=== PATIENT | female | born 2000 | race Caucasian/White ===

== ENCOUNTER 2022-08-10 20:35 | Outpatient (CLI) | payer OTHER ==
[~2022-08-10] VITALS: Ht 165.1 cm; Wt 84.0 kg
[2022-08-10 20:38] VITALS: BP 143/84
[2022-08-10 20:49] VITALS: BP 129/77
[2022-08-10] MEDS ORDERED: PRENTAB9 PO (21:34)
[2022-08-10] MEDS ORDERED: HOME MED LIST COMPLETE! XX SCH (21:35)
[2022-08-11] MEDS ORDERED: TUMS500C PO (16:55)
== END 2022-08-10 21:16 | disposition home or self-care (01) ==
LOC: M LDO 20:35 → M LDI 08-11 15:35 → UNDOADMIN 08-11 15:35 → UNDODISIN 08-11 15:45
PROVIDERS: ADMIT Obstetrics & Gynecology; ATTEND Obstetrics & Gynecology
DX: O47.1 False labor at or after 37 completed weeks of gestation (principal); O48.0 Post-term pregnancy; Z3A.40 40 weeks gestation of pregnancy
CPT/HCPCS: 59025; 76815; G0463

== ENCOUNTER 2022-08-11 15:51 | Inpatient (IN) | payer OTHER ==
[~2022-08-11] VITALS: Ht 165.1 cm; Wt 83.3 kg
[~2022-08-11 15:51] MED LIST: PRENTAB9 PO
[2022-08-11] MEDS ORDERED: METHYLERGONOVINE MALEATE 0.2MG/ML 1ML VIAL IM PRN (16:20)
[2022-08-11] MEDS ORDERED: OXYTOCIN DRIP 30 UNITS in IV 1 EA IV PRN ×6 (16:20)
[2022-08-11] MEDS ORDERED: LIDOCAINE 1% MDV 20ML VIAL INFIL PRN (16:20)
[2022-08-11] MEDS ORDERED: CARBOPROST TROMETHAMINE 250 MCG/ML AMP IM PRN (16:20)
[2022-08-11] MEDS ORDERED: TRANEXAMIC ACID INJection 1,000 MG in NS 100 ML IV PRN (16:20)
[2022-08-11 16:22] VITALS: BP 138/79
[2022-08-11] MEDS ORDERED: CALCIUM CARBONATE 500 MG CHEW U/D PO PRN (16:25)
[2022-08-11] MEDS ORDERED: TUMS500C PO (16:55)
[2022-08-11] MEDS ORDERED: FAMOTIDINE 20 MG TAB PO ONE (16:55)
[2022-08-11] MEDS ORDERED: HOME MED LIST COMPLETE! XX SCH (17:00)
[2022-08-11] MEDS: ONDANSETRON 4MG 2ML VIAL IV PRN (17:09)
[2022-08-11 17:18] LABS: HEMATOCRIT 38.5 % (36.0-47.0); HEMOGLOBIN 12.9 g/dl (12.0-15.5); MEAN CORPUSCULAR HEMOGLOBIN 28.7 pg (27.0-33.0); MEAN CORPUSCULAR HGB CONC 33.5 g/dl (32.0-36.5); MEAN CORPUSCULAR VOLUME 85.6 fl (80.0-96.0); PLATELET COUNT, AUTOMATED 284 10^3/uL (150-450); WHITE BLOOD COUNT 8.4 10^3/uL (4.0-10.0)
[2022-08-11 17:36] VITALS: BP 143/89
[2022-08-11] MEDS: miSOPROStol 50MCG 1/2 TABLET PO SCH ×2 (17:38→21:35)
[2022-08-11 19:39] VITALS: BP 173/90
[2022-08-11 19:40] VITALS: BP 144/74
[2022-08-11 21:37] VITALS: BP 140/78
[2022-08-12] VITALS (27 sets, daily range): BP systolic 109–175; BP diastolic 58–116
[2022-08-12] MEDS: miSOPROStol 50MCG 1/2 TABLET PO SCH ×5 (01:40→22:41)
[2022-08-12] MEDS ORDERED: MORPHINE 10 MG/ML 1ML VIAL IV ONE (05:35)
[2022-08-12] MEDS ORDERED: OXYTOCIN DRIP 30 UNITS in IV 1 EA IV SCH (06:20)
[2022-08-12] MEDS ORDERED: diphenhydrAMINE 50MG/ML VIAL IV PRN (09:15)
[2022-08-12] MEDS ORDERED: EPIDURAL/PCA KEYS XX PRN (09:15)
[2022-08-12] MEDS ORDERED: LR 500 ML IV PRN (09:15)
[2022-08-12] MEDS ORDERED: ePHEDrine SULFATE 25 MG/5 ML(5MG/ML) SYRINGE IVP PRN (09:15)
[2022-08-12] MEDS ORDERED: ONDANSETRON 4MG 2ML VIAL IV PRN ×2 (09:15→20:15)
[2022-08-12] MEDS ORDERED: NALOXONE INJ 0.4MG/1ML VIAL IV PRN (09:15)
[2022-08-12] MEDS: FENTANYL/ROPIVACAINE/NACL BAG 100 ML EPIDURAL SCH ×2 (09:54→17:15)
[2022-08-12] MEDS ORDERED: LACTATED RINGER'S 1000 ML IV STA (19:29)
[2022-08-12] MEDS ORDERED: AZITHROMYCIN INJ 500 MG, VIAL MATE ADAPTER 1 EACH in NS 250 ML IV ONE ×6 (19:30)
[2022-08-12] MEDS ORDERED: BICITRA 30ML SOLN UDC PO ONE ×2 (19:30)
[2022-08-12] MEDS ORDERED: ceFAZolin SOD 2 GM in IV 1 EA IV ONE ×4 (19:30)
[2022-08-12 20:11] LABS: CORD GAS ABE A -2.2; CORD GAS HCO3 A 24.2 MEQ/L; CORD GAS O2 SAT A 29.7 %; CORD GAS PCO2 A 47.3 mmHg; CORD GAS PH A 7.327 UNITS; CORD GAS PO2 A 15.7 mmHg; CORD GAS SBC A 20.8 MEQ/L; CORD GAS TCO2 A 25.7 MEQ/L
[2022-08-12 20:12] LABS: CORD GAS ABE V -2.2; CORD GAS O2 SAT V 57.2 %; CORD GAS PCO2 V 46.2 mmHg; CORD GAS PH V 7.334 UNITS; CORD GAS SBC V 21.7 MEQ/L; CORD GAS TCO2 V 25.4 MEQ/L
[2022-08-12] MEDS ORDERED: fentaNYL 100 MCG/2 ML INJECTION IV PRN (20:15)
[2022-08-12] MEDS ORDERED: LR 1,000 ML IV SCH (20:15)
[2022-08-12] MEDS ORDERED: MORPHINE 2 MG/ML 1ML VIAL IV PRN (20:15)
[2022-08-12] MEDS ORDERED: oxyCODONE 5MG TAB PO PRN (20:15)
[2022-08-12] MEDS ORDERED: ANUSOL HC CREAM 30GM TOP PRN (20:50)
[2022-08-12] MEDS ORDERED: MOM 30ML SUSPENSION UDC PO PRN (20:50)
[2022-08-12] MEDS ORDERED: MORPHINE PRES-FREE INJ 10 MG/10 ML VIAL As Ordered ONE (21:01)
[2022-08-12] MEDS ORDERED: MIDAZOLAM INJ 2MG/2ML VIAL As Ordered ONE (21:01)
[2022-08-12] MEDS ORDERED: KETOROLAC 60MG 2ML VIAL As Ordered ONE (21:01)
[2022-08-12] MEDS ORDERED: PHENYLephrine 500MCG 5ML (100MCG/ML) SYRINGE As Ordered ONE (21:01)
[2022-08-12] MEDS ORDERED: METOCLOPRAMIDE INJ 10MG/2ML VIAL As Ordered ONE (21:01)
[2022-08-12] MEDS ORDERED: OXYTOCIN 30UNITS IN 0.9% NaCl 500ML IV BAG As Ordered ONE (21:01)
[2022-08-12] MEDS ORDERED: fentaNYL 100 MCG/2 ML INJECTION As Ordered ONE (21:01)
[2022-08-12] MEDS ORDERED: ONDANSETRON 4MG 2ML VIAL As Ordered ONE (21:01)
[2022-08-12] MEDS ORDERED: propofoL 200 MG/20 ML VIAL As Ordered ONE (21:42)
[2022-08-12] MEDS ORDERED: SUCCINYLCHOLINE 100MG/5ML SYRINGE As Ordered ONE (21:42)
[2022-08-12] MEDS ORDERED: MORPHINE 4 MG/ML 1ML VIAL IV PRN (21:45)
[2022-08-12] MEDS: LR 1,000 ML IV SCH (22:41)
[2022-08-12] MEDS: DOCUSATE SODIUM 100MG CAPSULE PO SCH (22:47)
[2022-08-13] VITALS: BP 136/88
[2022-08-13] MEDS: ACETAMINOPHEN 500 MG TAB PO PRN ×3 (00:37→18:27)
[2022-08-13] MEDS: SLF 3 ML SYR IV SCH ×4 (03:13→22:00)
[2022-08-13] MEDS: KETOROLAC 30 MG/ML 1ML VIAL IV SCH ×3 (03:14→15:32)
[2022-08-13] MEDS: LR 1,000 ML IV SCH ×2 (03:15→08:47)
[2022-08-13] MEDS: FENTANYL/ROPIVACAINE/NACL BAG 100 ML EPIDURAL SCH (05:15)
[2022-08-13 05:52] VITALS: BP 117/66
[2022-08-13 07:03] LABS: HEMATOCRIT 33.4 % (36.0-47.0); MEAN CORPUSCULAR HEMOGLOBIN 29.2 pg (27.0-33.0); MEAN CORPUSCULAR HGB CONC 32.9 g/dl (32.0-36.5); MEAN CORPUSCULAR VOLUME 88.6 fl (80.0-96.0); PLATELET COUNT, AUTOMATED 259 10^3/uL (150-450); RED BLOOD COUNT 3.77 10^6/uL (4.00-5.40); WHITE BLOOD COUNT 19.8 10^3/uL (4.0-10.0)
[2022-08-13] MEDS: PRENATAL VITAMINS CHEWABLE TABLET PO SCH (08:45)
[2022-08-13] MEDS: DOCUSATE SODIUM 100MG CAPSULE PO SCH ×2 (08:45→20:20)
[2022-08-13] MEDS: SIMETHICONE 80MG CHEW TAB PO PRN (09:11)
[2022-08-13 10:00] VITALS: BP 135/85
[2022-08-13] MEDS ORDERED: oxyCODONE 5MG TAB PO PRN (14:05)
[2022-08-13] MEDS: oxyCODONE 5MG TAB PO PRN ×2 (14:18→20:21)
[2022-08-13] MEDS: ONDANSETRON 4MG 2ML VIAL IV PRN (14:18)
[2022-08-13 14:30] VITALS: BP 128/80
[2022-08-13 16:30] VITALS: BP 123/75
[2022-08-13 21:58] VITALS: BP 139/82
[2022-08-14] MEDS: ACETAMINOPHEN 500 MG TAB PO PRN ×3 (00:23→13:51)
[2022-08-14] MEDS: oxyCODONE 5MG TAB PO PRN ×3 (02:20→16:06)
[2022-08-14 06:00] VITALS: BP 119/77
[2022-08-14] MEDS: SLF 3 ML SYR IV SCH ×2 (06:00→14:00)
[2022-08-14] MEDS: PRENATAL VITAMINS CHEWABLE TABLET PO SCH (09:17)
[2022-08-14] MEDS: DOCUSATE SODIUM 100MG CAPSULE PO SCH (09:17)
[2022-08-14] MEDS: SIMETHICONE 80MG CHEW TAB PO PRN (16:10)
== END 2022-08-14 19:00 | disposition home or self-care (01) | DRG 773 ==
LOC: M LDI 15:55 → M OBS 08-12 22:04
PROVIDERS: ADMIT Obstetrics & Gynecology; ATTEND Obstetrics & Gynecology
PROC: 30233N1 Transfusion of Nonautologous Red Blood Cells into Peripheral Vein, Percutaneous Approach (ICD-10-PCS; 2022-08-12)
PROC: 10D00Z1 Extraction of Products of Conception, Low, Open Approach (ICD-10-PCS; principal; 2022-08-12 20:51)
DX: O48.0 Post-term pregnancy (principal); Z37.0 Single live birth; Z3A.40 40 weeks gestation of pregnancy; O75.81 Maternal exhaustion complicating labor and delivery; O32.4XX0 Maternal care for high head at term, not applicable or unspecified; O66.5 Attempted application of vacuum extractor and forceps